=== PATIENT | male | born 1980 | race Caucasian/White ===

== ENCOUNTER 2018-11-30 20:33 | Inpatient (IN) | payer MEDICAID, OTHER | END 2018-12-14 16:00 | disposition home or self-care (01) | LOC: ER 20:33 → SUR 3N 12-09 20:00 → ICU 2S 21:46 | PROC: 0TBB0ZZ Excision of Bladder, Open Approach (ICD-10-PCS; principal; 2018-11-30 01:05) | PROC: 0DBN0ZZ Excision of Sigmoid Colon, Open Approach (ICD-10-PCS; 2018-11-30 01:05) | PROC: 0D1B0Z4 Bypass Ileum to Cutaneous, Open Approach (ICD-10-PCS; 2018-11-30 01:05) | PROC: 5A1955Z Respiratory Ventilation, Greater than 96 Consecutive Hours (ICD-10-PCS; 2018-11-30 01:05) | DX: A41.9 Sepsis, unspecified organism (principal); N17.0 Acute kidney failure with tubular necrosis; J96.00 Acute respiratory failure, unspecified whether with hypoxia or hypercapnia; E43 Unspecified severe protein-calorie malnutrition; K65.9 Peritonitis, unspecified; K57.20 Diverticulitis of large intestine with perforation and abscess without bleeding; N32.1 Vesicointestinal fistula; N17.9 Acute kidney failure, unspecified; I10 Essential (primary) hypertension ==